=== PATIENT | male | born 1960 | race Caucasian/White ===

== ENCOUNTER 2019-07-11 06:03 | Emergency (ER) | payer OTHER, MEDICAID ==
[~2019-07-11] VITALS: Ht 182.9 cm; Wt 117.9 kg
[2019-07-11 06:23] VITALS: Ht 182.9 cm; Wt 117.9 kg
[2019-07-11 07:04] VITALS: BP 146/75
== END 2019-07-11 07:04 | disposition home or self-care (01) ==
LOC: ED 06:03 → EDSTATUS 06:03 → ED 07:04
DX: N50.82 Scrotal pain (principal)
CPT/HCPCS: J2270; Q0092